=== PATIENT | female | born 1995 | race Caucasian/White ===

== ENCOUNTER 2019-10-15 18:31 | Emergency (ER) | payer MEDICAID ==
--- NOTE | 2019-10-15 18:55 | ER Document Report ---
HPI - HPI Patient complains to provider of: Pressure vaginal itching Time Seen by Provider: 10/15/19 18:47 Onset: Yesterday Onset/Duration: Sudden Quality of pain: No pain Context: 23-year-old female with history of cystic fibrosis presents emergency department with complaints of vaginal itching and pressure when she voids. Reports symptoms started yesterday. She reports she gets a lot of yeast infections because of medications she is on for CF. Denies fever vomiting diarrhea. Denies vaginal discharge but complains of some vaginal odor. Reports she is sexually active not using protection. Associated Symptoms: None Exacerbated by: Denies Relieved by: Denies Similar symptoms previously: Yes Recently seen / treated by doctor: No Past Medical History - General Information source: Patient - Social History Smoking Status: Unknown if Ever Smoked Family History: None Patient has suicidal ideation: No Patient has homicidal ideation: No Pulmonary Medical History: Reports: Other - Cystic fibrosis Past Surgical History: Reports: Hx Abdominal Surgery - G-tube when she was a child, Other - Ear surgery when she was a child Vertical Provider Document - CONSTITUTIONAL Agree With Documented VS: Yes Exam Limitations: No Limitations General Appearance: WD/WN, No Apparent Distress - HEENT HEENT: Atraumatic, Normocephalic - NECK Neck: Supple - RESPIRATORY Respiratory: Breath Sounds Normal, No Respiratory Distress - CARDIOVASCULAR Cardiovascular: Regular Rate, Regular Rhythm - GI/ABDOMEN Gastrointestinal: Abdomen Soft, Abdomen Non-Tender - REPRODUCTIVE Female Genitalia: Normal Inspection. negative: CMT, Adnexal Pain-Right, Adnexal Pain-Left - BACK Back: negative: CVA Tenderness-Right, CVA Tenderness-Left - MUSCULOSKELETAL/EXTREMETIES Musculoskeletal/Extremeties: PHIL GOFF - NEURO Level of Consciousness: Awake, Alert, Appropriate Motor/Sensory: No Motor Deficit - DERM Integumentary: Warm, Dry Course - Re-evaluation Re-evalutation: 10/15/19 18:54 Patient instructed on urinalysis, urine for STDs and pelvic set up with vaginal exam for vaginal itching. Patient instructed on STD cultures timeframe. She was instructed that she may wait for results be treated prophylactically for STDs or return for positive STDs. 10/15/19 20:50 Urine Color STRAW 10/15/19 20:10 Urine Appearance CLEAR 10/15/19 20:10 Urine pH 6.0 (5.0-9.0) 10/15/19 20:10 Ur Specific [place] 1.014 10/15/19 20:10 Urine Protein NEGATIVE mg/dL (NEGATIVE) 10/15/19 20:10 Urine Glucose (UA) NEGATIVE mg/dL (NEGATIVE) 10/15/19 20:10 Urine Ketones NEGATIVE mg/dL (NEGATIVE) 10/15/19 20:10 Urine Blood NEGATIVE (NEGATIVE) 10/15/19 20:10 Urine Nitrite NEGATIVE (NEGATIVE) 10/15/19 20:10 Ur Leukocyte Esterase NEGATIVE (NEGATIVE) 10/15/19 20:10 Urine WBC (Auto) 6 /HPF 10/15/19 20:10 Urine RBC (Auto) 1 /HPF 10/15/19 20:10 10/15/19 21:10 STD cultures negative urinalysis negative wet mount positive for BV. Patient was instructed on BV. Instructed on Flagyl. She was instructed to follow-up with health department or her primary care provider within 1 week for recheck. She verbalized understanding to all instructions. - Vital Signs Vital signs: Temp Pulse Resp BP Pulse Ox 97.8 F 72 16 136/92 H 100 10/15/19 18:48 10/15/19 18:48 10/15/19 18:48 10/15/19 18:48 10/15/19 18:48 Procedures - Pelvic Exam Pelvic exam Time completed: 20:27 Cultures obtained: No Wet prep obtained: Yes Herpes culture obtained: No POC sent to lab: No Foreign body removed: No Bimanual exam performed: Yes Witnessed by: pauline CARRILLOvideo production coordinator - Discharge Clinical Impression: Vaginal itching, Bacterial vaginosis Condition: Stable Disposition: HOME, SELF-CARE Instructions: Metronidazole ([facility]), [facility] Department, Vaginosis, Bacterial ([facility]) Additional Instructions: *You have been evaluated for vaginal itching, bacterial vaginosis Your STD cultures were negative, your urinalysis was negative *Take medication as prescribed for bacterial vaginosis *Follow up with your [facility] ASSISTANT or the health department for recheck within 1 week *Return to ED for worsening condition, changes, needs Monitor your blood pressure. Your blood pressure was elevated today. This may be because you were anxious, in pain or because you need medication. It is important to follow up with your primary care provider for full evaluation. Prescriptions: Metronidazole [Flagyl 500 mg Tablet] 500 mg PO BID #14 tablet Forms: Elevated Blood Pressure
[2019-10-15 20:38] LABS: BACTERIA (WET MOUNT) 4+ BACTERIA SEEN; EPITHELIALS (WET MOUNT) 3+ EPITHELIALS SEEN; T.VAGINALIS (WET MOUNT) NO TRICHOMONAS SEEN; WBCS (WET MOUNT) 2+ WBCS SEEN; YEAST (WET MOUNT) NO YEAST SEEN
[2019-10-15 20:43] LABS: CHLAM PCR NOT DETECTED (NOT DETECT)
[2019-10-15 20:43] LABS: APPEARANCE,URINE CLEAR; BILIRUBIN,URINE NEGATIVE (NEGATIVE); COLOR,URINE STRAW; GLUCOSE, URINE NEGATIVE (NEGATIVE); KETONES,URINE NEGATIVE (NEGATIVE); LEUKOCYTE ESTERASE,URINE NEGATIVE (NEGATIVE); NITRITE,URINE NEGATIVE (NEGATIVE); PROTEIN,URINE NEGATIVE (NEGATIVE); URINE SPECIFIC GRAVITY 1.014; UROBILINOGEN,URINE NEGATIVE mg/dL (<2.0)
[2019-10-15 21:05] VITALS: BP 118/64
== END 2019-10-15 21:09 | disposition home or self-care (01) ==
LOC: ER 18:31
DX: N76.0 Acute vaginitis (principal); B96.89 Other specified bacterial agents as the cause of diseases classified elsewhere; E84.9 Cystic fibrosis, unspecified; Z79.899 Other long term (current) drug therapy
CPT/HCPCS: 81001; 81025; 87210; 87491; 87591; 99284

== ENCOUNTER 2019-10-27 16:47 | Emergency (ER) | payer MEDICAID ==
[2019-10-27] MEDS ORDERED: ONDANSETRON 4 MG TAB.RAPDIS PO ONE (17:05)
--- NOTE | 2019-10-27 17:08 | ER Document Report ---
ED Medical Screen (RME) - General Chief Complaint: Nausea/Vomiting Stated Complaint: NAUSEA,NASAL CONGESTION Time Seen by Provider: 10/27/19 17:02 Information source: Patient Notes: Patient presents with a 3-day history of nausea and vomiting. Patient reports congestion. Patient denies any cough. Patient also complains of night sweats. Patient has a history of cystic fibrosis and does have a G-tube placement. P atient denies any abdominal tenderness. I have greeted and performed a rapid initial assessment of this patient. A comprehensive ED assessment and evaluation of the patient, analysis of test results and completion of the medical decision making process will be conducted by additional ED providers. - Related Data Allergies/Adverse Reactions: escitalopram [From Lexapro] Allergy (Verified 10/27/19 17:01) Past Medical History Past Surgical History: Reports: Hx Abdominal Surgery - G-tube when she was a child, Other - Ear surgery when she was a child Physical Exam - Vital signs Vitals: Temp Pulse Resp BP Pulse Ox 97.9 F 59 L 18 125/72 100 10/27/19 16:57 10/27/19 16:57 10/27/19 16:57 10/27/19 16:57 10/27/19 16:57 - General General appearance: Appears well, Alert - Abdominal Tenderness: Nontender Course - Vital Signs Vital signs: Temp Pulse Resp BP Pulse Ox 97.9 F 59 L 18 125/72 100 10/27/19 16:57 10/27/19 16:57 10/27/19 16:57 10/27/19 16:57 10/27/19 16:57
[2019-10-27 17:40] LABS: ABSOLUTE EOSINOPHILS # (AUTO) 0.5 10^3/uL (0.0-0.6); ABSOLUTE LYMPHOCYTES (AUTO) 1.6 10^3/uL (0.5-4.7); ABSOLUTE MONOCYTES (AUTO) 0.7 10^3/uL (0.1-1.4); BASOPHILS % (AUTO) 0.6 % (0-2); HEMOGLOBIN 13.6 g/dL (12.0-15.5); TOTAL CELLS COUNTED % (AUTO) 100 %
[2019-10-27 17:48] LABS: ABSOLUTE NEUT (AUTO) 4.4 10^3/uL (1.7-8.2); EOSINOPHILS % (AUTO) 6.5 % (0-6); HEMATOCRIT 40.1 % (36.0-47.0); LYMPHOCYTES % (AUTO) 21.7 % (13-45); MEAN CORPUSCULAR HEMOGLOBIN 29.1 pg (27.0-33.4); MEAN CORPUSCULAR HGB CONC 33.9 g/dL (32.0-36.0); MEAN CORPUSCULAR VOLUME 86 fl (80-97); MONOCYTES % (AUTO) 9.6 % (3-13); PLATELET COUNT 199 10^3/uL (150-450); RED BLOOD COUNT 4.67 10^6/uL (3.72-5.28); RED CELL DISTRIBUTION WIDTH 14.6 % (11.5-14.0); SEGMENTED NEUTROPHILS % (AUTO) 61.6 % (42-78); WHITE BLOOD COUNT 7.2 10^3/uL (4.0-10.5)
[2019-10-27 17:56] LABS: ALBUMIN 4.3 g/dL (3.5-5.0); ALKALINE PHOSPHATASE 73 U/L (38-126); ANION GAP 10 (5-19); ASPARTATE AMINO TRANSFERASE 24 U/L (14-36); BILIRUBIN,DIRECT 0.2 mg/dL (0.0-0.4); BILIRUBIN,TOTAL 0.4 mg/dL (0.2-1.3); BLOOD UREA NITROGEN 16 mg/dL (7-20); CALCIUM 9.3 mg/dL (8.4-10.2); CARBON DIOXIDE 28 mmol/L (22-30); CHLORIDE 102 mmol/L (98-107); GLUCOSE 91 mg/dL (75-110); POTASSIUM 3.9 mmol/L (3.6-5.0); TOTAL PROTEIN 7.7 g/dL (6.3-8.2)
--- NOTE | 2019-10-27 19:15 | ER Document Report ---
ED General - General Chief Complaint: Nausea/Vomiting Stated Complaint: NAUSEA,NASAL CONGESTION Time Seen by Provider: 10/27/19 17:02 Notes: 23-year-old female with history of cystic fibrosis presents with nausea/vomiting, chills, subjective fever and nasal congestion for 3 days. Patient denies any coughing, abdominal pain, chest pain, shortness of breath. Patient states her roommate has similar symptoms. Patient states she has not taken anything for her symptoms. Patient states Zofran that was given out to her in triage has helped improved her nausea/vomiting. - Related Data Allergies/Adverse Reactions: escitalopram [From Lexapro] Allergy (Verified 10/27/19 17:01) Past Medical History - General Information source: Patient - Social History Smoking Status: Never Smoker Family History: None Patient has suicidal ideation: No Patient has homicidal ideation: No Past Surgical History: Reports: Hx Abdominal Surgery - gtube/partial removal of intestines., Other - Ear surgery when she was a child Review of Systems - Review of Systems Notes: Constitutional: Positive for subjective fever and chills. HENT: Positive for nasal congestion. Negative for sore throat. Eyes: Negative for visual changes. Cardiovascular: Negative for chest pain. Respiratory: Negative for shortness of breath. Gastrointestinal: Positive for nausea/vomiting. Negative for abdominal pain or diarrhea. Genitourinary: Negative for dysuria. Musculoskeletal: Negative for back pain. Skin: Negative for rash. Neurological: Negative for headaches, weakness or numbness. 10 point ROS negative except as marked above and in HPI. Physical Exam - Vital signs Vitals: Temp Pulse Resp BP Pulse Ox 97.9 F 59 L 18 125/72 100 10/27/19 16:57 10/27/19 16:57 10/27/19 16:57 10/27/19 16:57 10/27/19 16:57 - Notes Notes: GENERAL: Well-appearing, well-nourished and in no acute distress. HEAD: Atraumatic, normocephalic. EYES: Pupils equal round and reactive to light, extraocular movements intact, sclera anicteric, conjunctiva are normal. ENT: Nares patent, nasal congestion, oropharynx clear without exudates. Moist mucous membranes. Uvula midline without edema. No muffled voice. No trismus. No BOAT PILOT. NECK: Normal range of motion, supple without lymphadenopathy or JVD. LUNGS: Breath sounds clear to auscultation bilaterally and equal. No wheezes rales or rhonchi. HEART: Regular rate and rhythm without murmurs, rubs or gallops. ABDOMEN: Soft, nontender. No guarding, no rebound. No masses appreciated. EXTREMITIES: Normal range of motion, no pitting or edema. No clubbing or cyanosis. NEUROLOGICAL: Cranial nerves II through XII grossly intact. Normal speech, normal gait. PSYCH: Normal mood, normal affect. SKIN: Warm, Dry, normal turgor, no rashes or lesions noted. Course - Re-evaluation Re-evalutation: 10/27/19 Nontoxic, well appearing 23 y/o female presents for nausea/vomiting and nasal congestion. Pt is afebrile, nontachycardic. Lungs clear to auscultation bilaterally. RRR. Abd soft, nontender. PE is otherwise unremarkable. Pt given z ofran with improvement in nausea. Pt to be given symptomatic relief and follow up with PCP. Strict return precautions given/discussed. Pt voices understanding and agrees with plan of care. - Vital Signs Vital signs: Temp Pulse Resp BP Pulse Ox 97.9 F 59 L 18 125/72 100 10/27/19 16:57 10/27/19 16:57 10/27/19 16:57 10/27/19 16:57 10/27/19 16:57 - Laboratory Result Diagrams: 10/27/19 17:12 10/27/19 17:12 Laboratory results interpreted by me: 10/27/19 10/27/19 17:12 17:12 RDW 14.6 H Eos % (Auto) 6.5 H Lipase < 10.0 L Discharge - Discharge Clinical Impression: Nasal congestion Nausea & vomiting Qualifiers: Vomiting type: unspecified Vomiting Intractability: unspecified Qualified Code(s): R11.2 - Nausea with vomiting, unspecified Condition: Stable Disposition: HOME, SELF-CARE Instructions: Antinausea Medication ([facility]) Additional Instructions: Please take medications as prescribed. Please follow-up with your primary care doctor as scheduled. Return to ER for any worsening symptoms, including vomiting not controlled by medication, fever, abdominal pain, coughing, chest pain, shortness of breath or any other symptoms that are concerning to you. Prescriptions: Ondansetron [Zofran Odt 4 mg Tablet] 4 mg PO Q4HP PRN #30 tab.rapdis PRN Reason: Fexofenadine/Pseudoephedrine [Negrita-D 24 Hour Tablet] 1 each PO DAILY #20 tab.er.24h Fluticasone Propionate [Flonase Nasal [place] 50 Mcg/[place] 16 gm] 2 sprays NASL Q12 #1 inhaler Forms: Return to Work
[2019-10-27 20:30] VITALS: BP 119/74
== END 2019-10-27 20:28 | disposition home or self-care (01) ==
LOC: ER 16:47
DX: R11.2 Nausea with vomiting, unspecified (principal); R09.81 Nasal congestion; E84.9 Cystic fibrosis, unspecified; Z88.8 Allergy status to other drugs, medicaments and biological substances
CPT/HCPCS: 99283; 36415; 83690; 84703; 85025; 80053; S0119